=== PATIENT | male | born 2000 | race Caucasian/White ===

== ENCOUNTER 2018-06-08 13:10 | Emergency (ER) | payer BC ==
--- NOTE | 2018-06-08 15:16 | ED ---
Throat Pain/Nasal Congestion - HPI Summary HPI Summary: 18 male presents to sore throat since yesterday. He admits to subjective fevers. He states his exudate on his tonsils. He does have a history of strep. Admits to difficulty swelling. No chest or shortness breath. No cough. No bowel pain no nausea no vomiting. Admits to fatigue. Has not taking anything for her symptoms. Has no medical conditions. - History of Current Complaint Chief Complaint: EDThroatPain Time Seen by Provider: 06/08/18 14:09 - Allergies/Home Medications Allergies/Adverse Reactions: Allergies Allergy/AdvReac Type Severity Reaction Status Date / Time No Known Allergies Allergy Verified 06/08/18 13:17 PMH/Surg Hx/FS Hx/Imm Hx Endocrine/Hematology History: Denies: Hx Anticoagulant Therapy Cardiovascular History: Denies: Hx Pacemaker/ICD - Immunization History Immunizations Up to Date: Yes Infectious Disease History: No Infectious Disease History: Denies: Traveled Outside the [place] in Last 30 Days - Family History Known Family History: Negative: Diabetes - Social History Alcohol Use: Weekly Substance Use Type: Reports: None Smoking Status (MU): Never Smoked Tobacco Review of Systems Positive: Fever Positive: Sore Throat Negative: Chest Pain Negative: Shortness Of Breath Negative: Abdominal Pain All Other Systems Reviewed And Are Negative: Yes Physical Exam Triage Information Reviewed: Yes Vital Signs On Initial Exam: Initial Vitals Temp Pulse Resp BP Pulse Ox 98.4 F 70 16 104/72 100 06/08/18 13:15 06/08/18 13:15 06/08/18 13:15 06/08/18 13:15 06/08/18 13:15 Vital Signs Reviewed: Yes Appearance: Positive: Well-Appearing Skin: Positive: Warm, Dry Head/Face: Positive: Normal Head/Face Inspection Eyes: Positive: Normal, EOMI, HEYDI, Conjunctiva Clear ENT: Positive: Pharyngeal erythema, TMs normal, Tonsillar swelling, Tonsillar exudate, Uvula midline, Other - soft palate symmetric. Negative: Trismus, Muffled voice Respiratory/Lung Sounds: Positive: Clear to Auscultation, Breath Sounds Present Cardiovascular: Positive: Normal, RRR Abdomen Description: Positive: Nontender, Soft Bowel Sounds: Positive: Present Musculoskeletal: Positive: Normal Neurological: Positive: Normal Psychiatric: Positive: Normal Diagnostics - Vital Signs Vital Signs Temp Pulse Resp BP Pulse Ox 06/08/18 13:15 98.4 F 70 16 104/72 100 - Laboratory Lab Statement: Any lab studies that have been ordered have been reviewed, and results considered in the medical decision making process. EENT Course/Dx - Course Course Of Treatment: 18 male presents to sore throat since yesterday. He admits to subjective fevers. He states his exudate on his tonsils. He does have a history of strep. Admits to difficulty swelling. No chest or shortness breath. No cough. No bowel pain no nausea no vomiting. Admits to fatigue. Has not taking anything for her symptoms. Has no medical conditions. On exam has exudate and tonsillar swelling +3. Uvula midline. Soft palate symmetric. Strep neg. declined mono. will treat with steriod. Patient understands and agrees with plan. - Differential Diagnoses Differential Diagnoses: Pharyngitis, URI/Bronchitis, Other - strept - Diagnoses Provider Diagnoses: Pharyngitis Discharge - Sign-Out/Discharge Documenting (check all that apply): Patient Departure - Discharge Plan Condition: Good Disposition: HOME Prescriptions: Dexamethasone TAB* [Decadron TAB*] 4 mg PO DAILY #5 tab Magic Mouth Was-[place]/MAAL/LIDO* 5 ml SWISH SPIT QID #100 ml Patient Education Materials: Pharyngitis (ED) Referrals: No Primary Care Phys,NOPCP [Primary Care Provider] - Additional Instructions: Magic mouthwash 5ml swish and spit can use 4x a day Take steroid once a day for 5 days Take Tylenol or ibuprofen for pain/fever every 6 hours Can gargle salt water, use cough drops or products such as cloraseptic spray for pain Return to ED if develop difficulty breathing or unable to manage secretions, any new or worsening symptoms - Billing Disposition and Condition Condition: GOOD Disposition: Home
[2018-06-08 15:54] VITALS: BP 111/63
== END 2018-06-08 15:52 | disposition home or self-care (01) ==
LOC: ED 13:10
DX: J02.9 Acute pharyngitis, unspecified (principal); R50.9 Fever, unspecified
CPT/HCPCS: 87070; 87651; 99282